=== PATIENT | male | born 1965 | race Caucasian/White ===

== ENCOUNTER 2022-02-16 21:34 | Emergency (ER) | payer OTHER ==
[2022-02-16 21:44] VITALS: BP 148/96; PULSE 85; TEMP 98.2; BMI 30.9
[2022-02-16] MEDS ORDERED: ACETAMINOPHEN 325 MG TABLET (FP) PO ONE (22:15)
[2022-02-16] MEDS ORDERED: ACETAMINOPHEN 325 MG TABLET (FP) ONE (22:20)
[2022-02-16] MEDS ORDERED: KETOROLAC TROMETHAMINE 30 MG/1 ML VIAL IM ONE (23:15)
[2022-02-16] MEDS ORDERED: KETOROLAC TROMETHAMINE 30 MG/1 ML VIAL ONE (23:19)
== END 2022-02-16 23:40 | disposition home or self-care (01) ==
LOC: JER 21:34
PROC: 3E0233Z Introduction of Anti-inflammatory into Muscle, Percutaneous Approach (ICD-10-PCS; principal; 2022-02-16)
DX: R51.9 Headache, unspecified (principal); M54.2 Cervicalgia; V43.52XA Car driver injured in collision with other type car in traffic accident, initial encounter
CPT/HCPCS: 70450-TC; 72125-TC; 99284-25

== ENCOUNTER 2023-10-09 01:10 | Emergency (ER) | payer OTHER ==
[2023-10-09 01:19] VITALS: RESP 18; BMI 30.4
[2023-10-09] MEDS ORDERED: IBUPROFEN 600 MG TABLET (FP) PO ONE ×2 (06:09→06:15)
[2023-10-09 06:39] VITALS: BP 128/80; PULSE 57; TEMP 98
== END 2023-10-09 06:43 | disposition home or self-care (01) ==
LOC: JER 01:10
DX: U07.1 COVID-19 (principal); M54.41 Lumbago with sciatica, right side; R05.9 Cough, unspecified; R09.81 Nasal congestion; R50.9 Fever, unspecified; R53.81 Other malaise; J34.89 Other specified disorders of nose and nasal sinuses
CPT/HCPCS: 0241U-QW; 72131-TC; 99284-25